=== PATIENT | male | born 1940 | race Caucasian/White ===

== ENCOUNTER → 2019-04-12 | Outpatient (CLI) | payer MEDICARE ==
[~2019-04-12] MED LIST: ATORVASTATIN CA20 MG PO; CENTRUM SILVER1 EAC3 PO; GABAPENTIN300 MG PO; LISINOPRIL5 MG PO; LORATADINE10 MG PO; MURO-1283.5 GM OP; NORCO 7.5-3251 EACH PO; OSTEO BI-FLEX1 EAC2 PO; PANTOPRAZOLE SO40 MG PO; TAMSULOSIN HCL0.4 MG PO
--- NOTE | 2019-04-12 11:11 | Diagnostic Imaging Report ---
History: Turned and heard a pop, low back pain, radiating to the left leg Comparison studies: MRI of the lumbar spine 11/07/2015 Technique: Sagittal, coronal and axial T2 , sagittal T1 and IR, axial spin density oblique. Intravenous contrast: None Findings: Number of lumbar vertebral bodies:5 Alignment: Straightening of the normal lordosis. Minimal degenerative grade 1 anterior listhesis of L3 over L4 (4 mm) and mild grade 1 retrolistheses of L5 over S1 (7 mm)..No scoliosis. Soft tissues: No T2 hyperintense paraspinal inflammatory changes. Subcentimeter renal cyst at the right lower pole. Paraspinal muscles: Fatty infiltration of the left posterior paraspinal musculature from L5 through S1 secondary to severe atrophy. Lower thoracic cord:Normal in signal and morphology. The tip of the conus is at L1 superior endplate. Cauda equina: No masses. No arachnoiditis. Vertebrae: Normal in height and signal intensity. No compression fractures, infection or neoplasm. Degenerative changes: L1-L2: No abnormalities. L2-L3: Mild disc degeneration with loss of T2 signal. Mild hypertrophy and ligamentum flavum buckling results in mild to moderate canal stenosis, mild right and moderate left foraminal narrowing. Trace of fluid at the bilateral facet joints. L3-L4: Disc degeneration with loss of T2 signal. Diffuse disc bulge and moderate bilateral facet hypertrophy results in no significant canal stenosis and moderate bilateral foraminal narrowing. Nonvisualization of the ligamentum flavum secondary to posterior decompression. Trace of fluid at the bilateral facet joints. L4-L5: Disc degeneration with loss of T2 signal. Diffuse disc bulge and mild bilateral facet hypertrophy results in no significant canal stenosis, moderate right and mild left foraminal narrowing. Nonvisualization ligamentum flavum secondary to posterior decompression. L5-S1: Disc degeneration with loss of T2 signal and decreased intervertebral space. Mild grade 1 retrolistheses. Diffuse disc bulge and mild facet hypertrophy results in no significant canal stenosis and mild bilateral foraminal narrowing. Nonvisualization of the ligamentum flavum secondary to posterior decompression. Trace of fluid at the bilateral facet joints. 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 Moderate degenerative foraminal narrowing at L2-L3 on the left, L3-L4 bilaterally and L4-L5 on the right, stable. Moderate degenerative canal stenosis and foraminal narrowing at L2-L3, stable. Mild disc degeneration, stable. Mild degenerative grade 1 anterior listhesis of L3 over L4 and grade 1 retrolistheses of L5 over S1. Posterior decompression and laminectomy from L3 through L5 with improved previously visualized canal stenosis. Signed by: DR Jacobo Cornejo M.D. on 04/12/2019 11:09 AM
== END ==
LOC: MRI 05:00
PROVIDERS: ATTEND Internal Medicine
DX: M54.42 Lumbago with sciatica, left side (principal)
CPT/HCPCS: 72148

== ENCOUNTER 2020-03-23 18:03 | Emergency (ER) | payer MEDICARE, OTHER ==
[~2020-03-23] VITALS: Ht 172.7 cm; Wt 105.2 kg
[2020-03-23] MEDS ORDERED: ACETAMINOPHEN/CODEINE 300MG - 30MG TAB PO ONE (18:30)
== END 2020-03-23 18:27 | disposition home or self-care (01) ==
LOC: ER 18:15
DX: M54.5 Low back pain (principal); K21.9 Gastro-esophageal reflux disease without esophagitis
CPT/HCPCS: 99283

== ENCOUNTER → 2021-06-22 | Outpatient (CLI) | payer MEDICARE | LOC: RAD 09:08 | PROVIDERS: ATTEND Internal Medicine | DX: R06.02 Shortness of breath (principal) | CPT/HCPCS: 71046 ==

== ENCOUNTER → 2021-08-13 | Day surgery (SDC) | payer MEDICARE ==
[2021-08-11 09:22] LABS: BASOPHILS # (AUTO) 0.1 (0.0-0.1); BASOPHILS % 0.8 % (0.0-1.0); EOSINOPHILS # (AUTO) 0.1 (0.0-0.4); EOSINOPHILS % 1.6 % (0.0-6.0); HEMATOCRIT 48.5 % (38.2-49.6); HEMOGLOBIN 15.6 g/dL (14.0-18.0); LYMPHOCYTES # (AUTO) 1.6 (1.0-3.2); LYMPHOCYTES % 21.2 % (18.0-39.1); MEAN CORPUSCULAR HEMOGLOBIN 30.9 pg (28-32); MEAN CORPUSCULAR HGB CONC 32.2 g/dL (31-35); MONOCYTES # (AUTO) 0.8 (0.2-0.8); MONOCYTES % 10.4 % (4.4-11.3); NEUTROPHILS # (AUTO) 4.9 (2.1-6.9); NEUTROPHILS % 65.5 % (38.7-80.0); PLATELET COUNT 207 x10e3/uL (140-360); RED BLOOD COUNT 5.05 x10e6/uL (4.3-5.7); RED CELL DISTRIBUTION WIDTH 14.3 % (11.7-14.4)
[~2021-08-13] MED LIST changes: +COQ-1030 MG PO; +EPHEDRINE SULFATE INJ 50 MG/ML VIAL ONE; +FENTANYL CITRATE/PF 100MCG/2 ML INJ ONE; +FISH OIL 1,0001 EAC2 PO; +HYOSCYAMINE SULFATE 0.5 MG/ML INJ ONE; +LIDOCAINE HCL 2% LOCAL INJ 5 ML SDV VIAL INJ ONE; +MIDAZOLAM HCL 2 MG/2 ML VIAL ONE; +PHENYLEPHRINE HCL 1% 10 MG/ML VIAL ONE; +PLAVIX75 MG PO; +POVIDONE IODINE 0.05% 0.05 % ML PO ONE; +PRALUENT P150 MG/1 M IJ; +PROBIOTIC PO; +PROPOFOL IV EMULSION 10 MG/ML 20 ML VIAL ONE; +VITAMIN D310 MCG PO; +ZINC PO
[2021-08-13 14:05] VITALS: BP 110/76
== END | disposition home or self-care (01) ==
LOC: OR 10:31
PROVIDERS: ATTEND Internal Medicine Gastroenterology
DX: K29.70 Gastritis, unspecified, without bleeding (principal); D12.2 Benign neoplasm of ascending colon; K26.9 Duodenal ulcer, unspecified as acute or chronic, without hemorrhage or perforation; K22.2 Esophageal obstruction; K25.9 Gastric ulcer, unspecified as acute or chronic, without hemorrhage or perforation; K22.70 Barrett's esophagus without dysplasia; K20.90 Esophagitis, unspecified without bleeding; K22.89 Other specified disease of esophagus; K64.8 Other hemorrhoids; G47.33 Obstructive sleep apnea (adult) (pediatric); I45.10 Unspecified right bundle-branch block; I25.10 Atherosclerotic heart disease of native coronary artery without angina pectoris; I10 Essential (primary) hypertension; R01.1 Cardiac murmur, unspecified; E78.5 Hyperlipidemia, unspecified; E66.9 Obesity, unspecified; M54.2 Cervicalgia; M54.9 Dorsalgia, unspecified; Z01.810 Encounter for preprocedural cardiovascular examination; Z01.812 Encounter for preprocedural laboratory examination; Z79.02 Long term (current) use of antithrombotics/antiplatelets; Z79.899 Other long term (current) drug therapy; Z68.32 Body mass index [BMI] 32.0-32.9, adult; Z85.528 Personal history of other malignant neoplasm of kidney; Z98.61 Coronary angioplasty status; Z90.5 Acquired absence of kidney; Z87.891 Personal history of nicotine dependence
CPT/HCPCS: 36415; 43239; 45385; 85025; 93005; C9113; J1980; J2001; J2250; J2370; J2704; J3010; 45378

== ENCOUNTER 2022-08-19 16:51 | Inpatient (IN) | payer MEDICARE ==
[~2022-08-19] VITALS: Ht 172.7 cm; Wt 105.2 kg
[~2022-08-19 16:51] MED LIST changes: -EPHEDRINE SULFATE INJ 50 MG/ML VIAL ONE; -FENTANYL CITRATE/PF 100MCG/2 ML INJ ONE; -HYOSCYAMINE SULFATE 0.5 MG/ML INJ ONE; -LIDOCAINE HCL 2% LOCAL INJ 5 ML SDV VIAL INJ ONE; -MIDAZOLAM HCL 2 MG/2 ML VIAL ONE; -PHENYLEPHRINE HCL 1% 10 MG/ML VIAL ONE; -POVIDONE IODINE 0.05% 0.05 % ML PO ONE; -PROPOFOL IV EMULSION 10 MG/ML 20 ML VIAL ONE
[2022-08-19 17:19] VITALS: PULSE 75; RESP 20; O2SAT 97
[2022-08-19 17:30] LABS: BASOPHILS % 0.3 % (0.0-1.0); EOSINOPHILS % 0.3 % (0.0-6.0); HEMATOCRIT 42.8 % (38.2-49.6); HEMOGLOBIN 13.9 g/dL (14.0-18.0); LYMPHOCYTES # (AUTO) 0.9 (1.0-3.2); LYMPHOCYTES % 7.5 % (18.0-39.1); MEAN CORPUSCULAR HEMOGLOBIN 28.3 pg (28-32); MEAN CORPUSCULAR HGB CONC 32.5 g/dL (31-35); MEAN CORPUSCULAR VOLUME 87.2 fL (81-99); MONOCYTES # (AUTO) 0.7 (0.2-0.8); MONOCYTES % 5.8 % (4.4-11.3); NEUTROPHILS # (AUTO) 10.2 (2.1-6.9); NEUTROPHILS % 85.9 % (38.7-80.0); PLATELET COUNT 216 x10e3/uL (140-360); RED BLOOD COUNT 4.91 x10e6/uL (4.3-5.7); RED CELL DISTRIBUTION WIDTH 13.6 % (11.7-14.4)
[2022-08-19] MEDS ORDERED: IBUPROFEN 600 MG TAB PO STA (17:31)
[2022-08-19 17:39] LABS: INR 1.02; PROTHROMBIN TIME 13.9 seconds (11.9-14.5)
[2022-08-19 17:47] LABS: ALANINE AMINOTRANSFERASE 14 IU/L (0-55); ALBUMIN 3.9 g/dL (3.5-5.0); ALBUMIN/GLOBULIN RATIO 1.3 (0.8-2.0); ALKALINE PHOSPHATASE 66 IU/L (40-150); ANION GAP 15.1 mmol/L (8-16); BLOOD UREA NITROGEN 17 mg/dL (7-26); BUN/CREATININE RATIO 12 (6-25); CALCIUM 9.6 mg/dL (8.4-10.2); CARBON DIOXIDE 29 mmol/L (22-29); CHLORIDE 99 mmol/L (98-107); CREATINE KINASE 64 IU/L (30-200); CREATININE, SERUM 1.38 mg/dL (0.72-1.25); GLUCOSE 126 mg/dL (74-118); POTASSIUM 4.1 mmol/L (3.5-5.1); SODIUM 139 mmol/L (136-145)
[2022-08-19] MEDS ORDERED: SODIUM CHLORIDE 0.9% 1000ML 1,000 ML ONE (18:16)
[2022-08-19] MEDS ORDERED: SODIUM CHLORIDE 0.9% 1000ML 1,000 ML IV STA (18:42)
[2022-08-19] MEDS ORDERED: SODIUM CHLORIDE 0.9% IV ONE (18:45)
[2022-08-19] MEDS ORDERED: ONDANSETRON HCL INJ 2MG/ML 2ML 2 MG/ML VIAL IV PRN (19:15)
[2022-08-19] MEDS ORDERED: Morphine 4mg INJECTION 4 MG/ML INJ IV PRN (19:15)
[2022-08-19 21:34] VITALS: BP 92/49; PULSE 77; RESP 19; TEMP 98.8; O2SAT 99
[2022-08-19 22:01] VITALS: PULSE 81; RESP 18; O2SAT 98
[2022-08-19 23:28] VITALS: BP 92/49; PULSE 81; RESP 18; TEMP 98.8; O2SAT 98
[2022-08-19] MEDS: SODIUM CHLORIDE 0.9% 1000ML 1,000 ML IV SCH (23:52)
[2022-08-20] VITALS (10 sets, daily range): BP systolic 92–127; BP diastolic 49–73; PULSE 67–81; RESP 16–19; TEMP 97.4–98.8; O2SAT 94–99
[2022-08-20] MEDS ORDERED: LOTEMAX5 ML (01:52)
[2022-08-20] MEDS ORDERED: PRALUENT P150 MG/1 M (01:52)
[2022-08-20] MEDS ORDERED: ULTRAM 50MG50 MG PO (01:52)
[2022-08-20] MEDS ORDERED: PROTONIX40 MG/ML (01:52)
[2022-08-20] MEDS ORDERED: METHYLPREDNISOLONE SOD SUCC 40 MG/ML VIAL 1ML IV ONE (04:45)
[2022-08-20 05:45] LABS: BASOPHILS % 0.3 % (0.0-1.0); EOSINOPHILS # (AUTO) 0.1 (0.0-0.4); EOSINOPHILS % 0.5 % (0.0-6.0); HEMATOCRIT 36.2 % (38.2-49.6); HEMOGLOBIN 11.4 g/dL (14.0-18.0); LYMPHOCYTES # (AUTO) 1.5 (1.0-3.2); LYMPHOCYTES % 10.8 % (18.0-39.1); MEAN CORPUSCULAR HEMOGLOBIN 27.9 pg (28-32); MEAN CORPUSCULAR HGB CONC 31.5 g/dL (31-35); MEAN CORPUSCULAR VOLUME 88.5 fL (81-99); MONOCYTES # (AUTO) 1.2 (0.2-0.8); MONOCYTES % 8.8 % (4.4-11.3); NEUTROPHILS # (AUTO) 10.8 (2.1-6.9); NEUTROPHILS % 79.1 % (38.7-80.0); PLATELET COUNT 188 x10e3/uL (140-360); RED BLOOD COUNT 4.09 x10e6/uL (4.3-5.7); RED CELL DISTRIBUTION WIDTH 13.5 % (11.7-14.4)
[2022-08-20] MEDS: SODIUM CHLORIDE 0.9% 1000ML 1,000 ML IV SCH ×2 (05:47→16:25)
[2022-08-20 06:19] LABS: ALBUMIN/GLOBULIN RATIO 1.2 (0.8-2.0); ANION GAP 13.4 mmol/L (8-16); CALCIUM 8.7 mg/dL (8.4-10.2); CREATININE, SERUM 2.13 mg/dL (0.72-1.25); POTASSIUM 4.4 mmol/L (3.5-5.1)
[2022-08-20] MEDS: LORATADINE 10 MG TAB PO SCH (09:26)
[2022-08-20] MEDS: ATORVASTATIN 40 MG TAB PO SCH (09:26)
[2022-08-20] MEDS: GABAPENTIN 300 MG CAP PO SCH ×2 (09:26→16:27)
[2022-08-20] MEDS: PANTOPRAZOLE SOD 40 MG TABEC PO SCH (09:27)
[2022-08-20] MEDS: CLOPIDOGREL BISULFATE 75 MG TAB PO SCH (09:27)
[2022-08-20] MEDS ORDERED: ONDANSETRON HCL 4 MG ORAL DISINTEGRATING TAB PO PRN (13:30)
[2022-08-20 14:42] LABS: CREATINE KINASE 61 IU/L (30-200)
[2022-08-21] VITALS: BP 120/72; PULSE 77; RESP 20; TEMP 98; O2SAT 97
[2022-08-21] MEDS: SODIUM CHLORIDE 0.9% 1000ML 1,000 ML IV SCH ×2 (03:15→05:01)
[2022-08-21 04:00] VITALS: BP 119/61; PULSE 71; RESP 20; TEMP 97.5; O2SAT 97
[2022-08-21 06:05] LABS: BASOPHILS % 0.2 % (0.0-1.0); EOSINOPHILS % 0.2 % (0.0-6.0); HEMATOCRIT 33.7 % (38.2-49.6); HEMOGLOBIN 10.9 g/dL (14.0-18.0); LYMPHOCYTES # (AUTO) 1.3 (1.0-3.2); LYMPHOCYTES % 9.8 % (18.0-39.1); MEAN CORPUSCULAR HEMOGLOBIN 27.6 pg (28-32); MEAN CORPUSCULAR HGB CONC 32.3 g/dL (31-35); MEAN CORPUSCULAR VOLUME 85.3 fL (81-99); MONOCYTES # (AUTO) 0.9 (0.2-0.8); NEUTROPHILS % 82.5 % (38.7-80.0); PLATELET COUNT 190 x10e3/uL (140-360); RED BLOOD COUNT 3.95 x10e6/uL (4.3-5.7); RED CELL DISTRIBUTION WIDTH 13.3 % (11.7-14.4)
[2022-08-21 06:30] LABS: ALBUMIN/GLOBULIN RATIO 1.1 (0.8-2.0); ANION GAP 12.2 mmol/L (8-16); CALCIUM 8.4 mg/dL (8.4-10.2); CREATININE, SERUM 1.45 mg/dL (0.72-1.25); POTASSIUM 4.2 mmol/L (3.5-5.1)
[2022-08-21 08:07] VITALS: BP 116/64; PULSE 72; RESP 18; TEMP 97.8; O2SAT 100
[2022-08-21 08:29] VITALS: BP 116/64; PULSE 72; RESP 18; TEMP 97.8; O2SAT 100
[2022-08-21] MEDS: GABAPENTIN 300 MG CAP PO SCH (08:33)
[2022-08-21] MEDS: CLOPIDOGREL BISULFATE 75 MG TAB PO SCH (08:33)
[2022-08-21] MEDS: LORATADINE 10 MG TAB PO SCH (08:34)
[2022-08-21] MEDS: ATORVASTATIN 40 MG TAB PO SCH (08:34)
[2022-08-21] MEDS: PANTOPRAZOLE SOD 40 MG TABEC PO SCH (08:34)
[2022-08-22] MEDS ORDERED: PREDNISONE10 MG PO (19:13)
== END 2022-08-21 09:56 | disposition home or self-care (01) | DRG 603 ==
LOC: ER 17:05 → ERHOLD 19:07 → MED/SURG3 21:17
PROVIDERS: ADMIT Internal Medicine; ATTEND Internal Medicine
DX: L03.032 Cellulitis of left toe (principal); M10.9 Gout, unspecified; I12.9 Hypertensive chronic kidney disease with stage 1 through stage 4 chronic kidney disease, or unspecified chronic kidney disease; N18.30 Chronic kidney disease, stage 3 unspecified; K21.9 Gastro-esophageal reflux disease without esophagitis; E78.5 Hyperlipidemia, unspecified; M54.9 Dorsalgia, unspecified; Z59.6 Low income
CPT/HCPCS: 36415; 71045; 80053; 82550; 82553; 83605; 84484; 85025; 85610; 85730; 87040; 87400; 93005; 94799; 99284; J2543; J2920; J7030

== ENCOUNTER 2022-08-22 18:36 | Emergency (ER) | payer MEDICARE ==
[~2022-08-22] VITALS: Ht 172.7 cm; Wt 105.2 kg
[~2022-08-22 18:36] MED LIST changes: +LOTEMAX5 ML; +PRALUENT P150 MG/1 M; +PROTONIX40 MG/ML; +ULTRAM 50MG50 MG PO
[2022-08-22 18:55] VITALS: O2SAT 98
[2022-08-22] MEDS ORDERED: KETOROLAC TROMETHAMINE 30 MG/ML VIAL IM STA (19:01)
[2022-08-22] MEDS ORDERED: KETOROLAC TROMETHAMINE 30 MG/ML VIAL ONE (19:02)
[2022-08-22] MEDS ORDERED: PREDNISONE10 MG PO (19:13)
== END 2022-08-22 20:25 | disposition home or self-care (01) ==
LOC: ER 18:43
DX: M79.675 Pain in left toe(s) (principal); M10.9 Gout, unspecified; I10 Essential (primary) hypertension; E78.5 Hyperlipidemia, unspecified; K21.9 Gastro-esophageal reflux disease without esophagitis; M54.9 Dorsalgia, unspecified; G89.29 Other chronic pain
CPT/HCPCS: 99282; J1885